=== PATIENT | male | born 1965 | race Caucasian/White ===

== ENCOUNTER 2016-07-16 09:12 | Emergency (ER) | payer MEDICARE, MEDICAID ==
[2016-07-16 09:50] VITALS: BP 105/72
--- NOTE | 2016-07-16 10:55 | UC ---
Ear Complaint HPI - HPI Summary HPI Summary: pt is accompanied by male caregiver from detention. caregiver reports that pt began "pulling" at right ear X 1 day. Has history of OM - History of Current Complaint Chief Complaint: UCEar Stated Complaint: EAR PAIN Time Seen by Provider: 07/16/16 10:21 Hx Obtained From: Family/Molding Line Assistant Hx From Patient Unobtainable Due To: Other - cognitive ability Onset/Duration: Sudden Onset Severity Initially: Mild Severity Currently: Mild - Allergies/Home Medications Allergies/Adverse Reactions: Allergies Allergy/AdvReac Type Severity Reaction Status Date / Time No Known Allergies Allergy Verified 07/16/16 09:50 PMH/Surg Hx/FS Hx/Imm Hx Previously Healthy: Yes - Surgical History Surgical History: Yes Surgery Procedure, Year, and Place: eye surgery - Family History Known Family History: Positive: Other - pt unable to provide pas [facility] - Social History Lives: [place] Alcohol Use: None Substance Use Type: None Smoking Status (MU): Never Smoked Tobacco Review of Systems Constitutional: Negative Skin: Negative Eyes: Negative ENT: Other - pulling at right ear Respiratory: Negative Cardiovascular: Negative Gastrointestinal: Negative Genitourinary: Negative Motor: Negative Neurovascular: Negative Musculoskeletal: Negative Neurological: Negative Psychological: Negative All Other Systems Reviewed And Are Negative: Yes Physical Exam Triage Information Reviewed: Yes Appearance: Well-Appearing Vital Signs: Initial Vital Signs Temp 98.1 F 07/16/16 09:42 Pulse 65 07/16/16 09:42 Resp 12 07/16/16 09:42 BP 105/72 07/16/16 09:42 Vital Signs Reviewed: Yes Eye Exam: Other - wearing sunglasses ENT: Positive: TMs normal, Other: - cerumen bilateral ears. right ear large amount of dry cerumen. Neck exam: Normal Respiratory Exam: Normal Cardiovascular Exam: Normal Musculoskeletal Exam: Normal Neurological Exam: Normal Neurological: Positive: Other: - visually impaired Psychological Exam: Normal Skin Exam: Normal Ear Complaint Course/Dx - Course Course Of Treatment: pt is unable to tolerate removal of cerumen with currette. Pt caregiver requested referral to ENT, Dr. Modi. - Differential Dx/Diagnosis Differential Diagnosis/HQI/PQRI: Cerumen Impaction, Otitis Media Provider Diagnoses: cerumen impaction right ear Discharge - Discharge Plan Condition: Stable Disposition: HOME Patient Education Materials: Cerumen Impaction (ED) Referrals: Harshad Miranda MD [Primary Care Provider] - Mckinley Modi MD [Medical Doctor] - Additional Instructions: Pt is an established pt of Dr. Modi. Pt's caregiver has requested a referral to Dr. Modi for continuity of care.
== END 2016-07-16 10:56 | disposition home or self-care (01) ==
LOC: UCCORT 09:12
DX: H61.21 Impacted cerumen, right ear (principal)
CPT/HCPCS: 99212; G0463

== ENCOUNTER 2017-10-18 10:23 | Emergency (ER) | payer MEDICARE, MEDICAID ==
[2017-10-18 11:16] VITALS: BP 113/69
--- NOTE | 2017-10-18 11:56 | UC ---
UC General HPI - HPI Summary HPI Summary: Pt is accompanied by longterm caregiver. Caregiver reports that pt has been yelling out and c/o left upper arm pain. Caregiver also says pt has been sticking tongue out and is concerned that pt may have sore throat. - History of Current Complaint Chief Complaint: UCUpperExtremity Stated Complaint: YELLING & RUBBING ARM Time Seen by Provider: 10/18/17 11:33 Hx Obtained From: Family/Diabetes Physician Hx From Patient Unobtainable Due To: Other Onset/Duration: Sudden Onset, Lasting Hours Onset Severity: Mild Current Severity: None - unable to have reliable assessment. Pain Intensity: 4 Associated Signs & Symptoms: Positive: Agitation - Allergy/Home Medications Allergies/Adverse Reactions: Allergies Allergy/AdvReac Type Severity Reaction Status Date / Time No Known Allergies Allergy Verified 10/18/17 11:05 PMH/Surg Hx/FS Hx/Imm Hx Previously Healthy: Yes - see pmh Psychological History: Other - diminished ability to communicate Other Psychological History: cognitive impairment, - Surgical History Surgical History: Yes Surgery Procedure, Year, and Place: eye surgery - Family History Known Family History: Positive: Other - pt unable to provide pas H - Social History Occupation: Disabled Lives: [facility]iary Alcohol Use: None Substance Use Type: None Smoking Status (MU): Never Smoked Tobacco Have You Smoked in the Last Year: No Review of Systems Constitutional: Negative Skin: Negative Eyes: Negative ENT: Negative Respiratory: Negative Cardiovascular: Negative Gastrointestinal: Negative Genitourinary: Negative Motor: Negative Neurovascular: Negative Musculoskeletal: Negative Neurological: Negative Psychological: Negative Is Patient Immunocompromised?: No All Other Systems Reviewed And Are Negative: Yes Physical Exam Triage Information Reviewed: Yes Appearance: Well-Appearing Vital Signs: Initial Vital Signs Temp 99 F 10/18/17 11:06 Pulse 66 10/18/17 11:06 Resp 18 10/18/17 11:06 BP 113/69 10/18/17 11:06 Pulse Ox 98 10/18/17 11:06 Vital Signs Reviewed: Yes ENT: Positive: Normal ENT inspection, Other - cerumen impaction left ear canal Dental: Positive: Gross Decay/Caries @ Neck exam: Normal Respiratory Exam: Normal Cardiovascular Exam: Normal Musculoskeletal Exam: Normal Neurological Exam: Normal Psychological Exam: Normal Skin Exam: Normal Course/Dx - Differential Dx - Multi-Symptom Differential Diagnoses: Other - left ear cerumen impaction Provider Diagnoses: left ear cerumen impaction Discharge - Sign-Out/Discharge Documenting (check all that apply): Discharge - Discharge Plan Condition: Stable Disposition: HOME Patient Education Materials: Cerumen Impaction (ED) Referrals: Harshad Miranda MD [Primary Care Provider] - If Needed - Billing Disposition and Condition Condition: STABLE Disposition: HOME
== END 2017-10-18 12:20 | disposition home or self-care (01) ==
LOC: UCCORT 10:24
DX: H61.22 Impacted cerumen, left ear (principal); M79.622 Pain in left upper arm
CPT/HCPCS: 99212; G0463

== ENCOUNTER 2017-12-09 13:44 | Emergency (ER) | payer MEDICARE, MEDICAID ==
--- OUTSIDE RECORDS SUMMARY | 2017-12-09 13:55 | XMS REPORT ---
:1965 External Reference #:[id number] Author Organization [facility] Address [address], [address] [place] [address] Phone [phone] Care Team Providers Name Role Phone Harshad Miranda MD Care Team Information Missile Inspector Preflight Unavailable Harshad Miranda MD Primary Care Physician Unavailable Payers Type Date Identification Numbers Payment Provider Subscriber Medicare Primary Policy Number: [id number] Medicare Anurag Varghese PayID: [id number] [address] [place] [address] Medicaid Policy Number: [id number] Medicaid Anurag Varghese Group Name: 1 2 [address] PayID: [id number] [place] [address] Problems Description No Information Social History Type Date Description Comments Lives With Halfway Occupation none Work Status Disabled Hand Dominance unable to determine Cigarette Use Never Smoked Cigarettes ETOH Use Never used alcohol Recreational Drug Use Denies Drug Use Allergies, Adverse Reactions, Alerts Date Description Reaction Status Severity Comments 10/21/2017 NKDA active Medications Medication Date Status Form Strength Qnty SIG Indications Ordering Provider Calcium 600+D / Active Tablets 600-400mg 90tab 1 by mouth Unknown High Potency 0000 -Unit s three times a day Levetiracetam / Active Tablets 500mg 1 tab by Unknown 0000 mouth every morning and every evening Polyethylene 00// Active Powder 527 every day Unknown Glycol 0000 Primidone / Active Tablets 50mg take one Unknown 0000 tablet by mouth at bedtime Propranolol HCL / Active Tablets 20mg take one Unknown 0000 tablet by mouth twice a day Senna Plus / Active Tablets 8.6-50mg 1 by mouth Unknown 0000 twice a day Ibuprofen 200 00/00/ Active Tablets 200mg 90tab 1 tab by Unknown 0000 s mouth as needed Bengay Ultra / Active Patches 5% Rub on Lt Unknown Strength 0000 Arm/Elbow as needed Acetaminophen / Active Tablets 325mg 2 by mouth Unknown 0000 every 4 hours as needed for pain Mylanta / Active Suspension 200-200-2 355ml 1 dose by Unknown 0000 0mg/5ML mouth every 4 hours as needed Bismuth Citrate / Active Powder 2 tbsp by Unknown 0000 mouth as needed Guaifenesin / Active Liquid 100mg/5ML 473ml 2 Teaspoon Unknown 0000 by mouth every 4 hours as needed Loratadine / Active Capsules 10mg 1 by mouth Unknown 0000 every day Bacitracin / Active Ointment 500Unit/G apply Unknown (External) 0000 M topically to minor cuts, wounds 2 times a day as needed Hydrocortisone / Active Cream 1% apply as Unknown 0000 needed for itching Vitamin D3 / Active Capsules 1000Unit 1 by mouth Unknown 0000 every day Medications Administered in Office Medication Date Status Form Strength Qnty SIG Indications Ordering Provider Injection Administered Injection Dayanara Anderson Betamethsara 2017 Anshul Rosado [facility] Sodium Phosphate 3 MG Of Each Vital Signs Date Vital Result Comment 11/16/2017 BP Systolic 103 mmHg BP Diastolic 70 mmHg Body Temperature 98.2 F Heart Rate 67 /min Respiratory Rate 15 /min Height 66 inches 5'6" Weight 135.00 lb BMI (Body Mass Index) 21.8 kg/m2 BSA (Body Surface Area) 1.69 m2 [place] body weight in kilograms 64 Pain Level 0 10/21/2017 BP Systolic Sitting Left Arm 106 mmHg BP Diastolic Sitting Left Arm 75 mmHg Body Temperature 98.2 F Heart Rate 65 /min Respiratory Rate 12 /min Weight 134.31 lb Pain Level 0 Results Description No Information Procedures Date CPT Code Description Status 10/21/2017 49654 Aspiration/Injection joint Completed intermediate(wrist/ankle/elbow/olbursa 11/23/2006 96501 Remove Impacted Cerumen Completed Encounters Type Date Location Provider CPT E/M Dx Office Visit 11/16/2017 10:45a Orthopaedic Office Dayanara Rosado, [address]1015 M77.12 [facility] Office Visit 10/21/2017 10:00a Orthopaedic Office Dayanara Rosado, 88263 M77.12 [facility] M25.522 Plan of Care 11/16/2017 - Dayanara Rosado [facility]77.12 Lateral epicondylitis, left elbowAllComments:He is doing well and will follow-up as needed with any problems or concerns.
--- OUTSIDE RECORDS SUMMARY | 2017-12-09 13:55 | XMS REPORT ---
:1965 External Reference #:[id number] Author Organization [facility] Address [address] [place] [address] Phone [phone] Care Team Providers Name Role Phone Harshad Miranda MD Care Team Information Photo Lab Manager Unavailable Harshad Miranda MD Primary Care Physician Unavailable Payers Type Date Identification Numbers Payment Provider Subscriber Medicare Primary Policy Number: [id number] Medicare Anurag Varghese PayID: [id number] [address] [place] [address] Medicaid Policy Number: [id number] Medicaid Anurag Varghese Group Name: 1 2 [address] PayID: [id number] [place] [address] Problems Description No Information Social History Type Date Description Comments Marital Status Single Marital Status Single Occupation Disabled Cigarette Use Never Smoked Cigarettes Cigarette Use Never Smoked Cigarettes ETOH Use Never used alcohol ETOH Use Never used alcohol Recreational Drug Use Never Used Drugs Allergies, Adverse Reactions, Alerts Date Description Reaction Status Severity Comments 09/03/2014 NKDA active 05/25/2007 NKDA inactive Medications Medication Date Status Form Strength Qnty SIG Indications Ordering Provider Apap 07/27 Active Tablets 325mg Every 4 Hours prn For temp/ discomfort Kaopectate 07/27 Active Suspension 262mg/15M Every 4 L Hours Hydrocortisone 07/27 Active Cream 1% Twice Daily prn For Itching Claritin 07/27 Active Tablets 10mg Every Day prn For allergy sx Polyethylene 07/27 Active Powder 3350-GRX Every Day Unknown Glycol 3350-GRX /2014 Keppra Active Tablets 500mg 2 po in am Unknown /0000 and 3 po in pm Polyethylene Active Unknown Glycol 3350-17GM /0000 Calcium 600 + D Active Tablets 600-200mg tid -Unit Propranolol Active Tablets 20mg bid Unknown Senna-Docusate Active Tablets 8.6-50mg bid Unknown Primidone Active Tablets 50mg 1 po qhs Unknown Ciprodex 10/05 Hx Suspension 0.3-0.1% 1bott 5 drops le twice a day Mckinley, - x 1 week M.D. 05/13 both ear /2014 Inderal 07/27 Hx Tablets 20mg Twice Daily - 08/18 Senna S 07/27 Hx Tablets 8.6-50mg Twice Daily - 08/18 Astepro 01/09 Hx Solution 137mcg/Sp 1unit 1 sprays in ray s each Mckinley, - nostril M.D. 05/13 Debrox 06/14 Hx Solution 6.5% QS 4 gtts each ear x wk Mckinley, - prior to M.D. 06/14 ear cleaning. Debrox 06/14 Hx Solution 6.5% QS 4 gtts ear ear x 1 wk Mckinley, - prior to M.D. 05/13 ear cleaning Debrox 05/25 Hx Solution 6.5% 3 gtts tid Mckinley, - M.D. 06/[address] 500mg 1 PO Am And Unknown 2 PO hs - 05/13 Tegretol Hx Chewtabs 100mg 1 PO bid - 05/13 Tegretol Hx Tablets 200mg 1 qid - 05/13 Inderal Hx Tablets 10mg 1 tid - 05/13 Calcium/Vitamin Hx Tablets 600mg 1 tid Unknown D - 11/09 Fosamax Hx Tablets 70mg Once A Week - 05/[address] 500mg - 05/13 Vitamin D /00 Hx Tablets 1000Unit 1 by mouth Unknown / every day - 08/18 Baby Oil Hx Oil apply 2-3 Unknown / drops both - ears at 05/17 night. Vital Signs Date Vital Result Comment 11/22/2017 Weight 143.00 lb Height 64 inches 5'4" BMI (Body Mass Index) 24.5 kg/m2 BP Systolic 97 mmHg BP Diastolic 66 mmHg Heart Rate 87 /min O2 % BldC Oximetry 100 % Body Temperature 97.3 F Pain Level 0 05/25/2017 Weight 143.00 lb Height 64 inches 5'4" BMI (Body Mass Index) 24.5 kg/m2 BP Systolic 107 mmHg BP Diastolic 72 mmHg Heart Rate 72 /min O2 % BldC Oximetry 95 % Body Temperature 97.9 F Pain Level 0 11/16/2016 Weight 149.00 lb Height 64 inches 5'4" BMI (Body Mass Index) 25.6 kg/m2 BP Systolic 116 mmHg BP Diastolic 78 mmHg Heart Rate 72 /min O2 % BldC Oximetry 96 % Body Temperature 97.7 F 08/19/2016 Weight 148.38 lb Height 64 inches 5'4" BMI (Body Mass Index) 25.5 kg/m2 BP Systolic 122 mmHg BP Diastolic 76 mmHg Heart Rate 84 /min O2 % BldC Oximetry 99 % Body Temperature 98.6 F 05/18/2016 Weight 148.00 lb Height 64 inches 5'4" BMI (Body Mass Index) 25.4 kg/m2 BP Systolic 112 mmHg BP Diastolic 74 mmHg Heart Rate 63 /min O2 % BldC Oximetry 97 % Body Temperature 97.5 F 11/11/2015 Weight 150.00 lb Height 64 inches 5'4" BMI (Body Mass Index) 25.7 kg/m2 BP Systolic 116 mmHg BP Diastolic 68 mmHg Heart Rate 103 /min O2 % BldC Oximetry 98 % Body Temperature 97.9 F 05/14/2015 Weight 146.00 lb Height 64 inches 5'4" BMI (Body Mass Index) 25.1 kg/m2 BP Systolic 118 mmHg BP Diastolic 76 mmHg Heart Rate 82 /min O2 % BldC Oximetry 97 % Body Temperature 97.8 F 11/12/2014 Weight 147.00 lb with sneakers Height 64 inches 5'4" BMI (Body Mass Index) 25.2 kg/m2 BP Systolic 104 mmHg BP Diastolic 68 mmHg Heart Rate 85 /min O2 % BldC Oximetry 97 % Body Temperature 98.3 F 10/17/2014 Body Temperature 97.9 F 10/05/2014 Weight 144.00 lb Height 64 inches 5'4" BMI (Body Mass Index) 24.7 kg/m2 BP Systolic 104 mmHg BP Diastolic 66 mmHg Heart Rate 81 /min O2 % BldC Oximetry 96 % Body Temperature 98.1 F 09/03/2014 Weight 146.00 lb Height 64 inches 5'4" BMI (Body Mass Index) 25.1 kg/m2 BP Systolic 100 mmHg BP Diastolic 58 mmHg Heart Rate 65 /min O2 % BldC Oximetry 98 % Body Temperature 97.2 F 01/09/2009 Body Temperature 97.6 F 08/20/2008 Weight 145.00 lb WT Per Fructose Loader BP Systolic 118 mmHg BP Diastolic 80 mmHg 11/23/2007 Weight 148.50 lb Body Temperature 96.1 F Results Description No Information Procedures Date CPT Code Description Status 05/25/2017 21644 Remove Impacted Cerumen Completed 11/16/2016 51736 Remove Impacted Cerumen Completed 08/19/2016 33572 Remove Impacted Cerumen Completed 05/18/2016 06864 Remove Impacted Cerumen Completed 11/11/2015 37056 Remove Impacted Cerumen Completed 05/14/2015 85812 Remove Impacted Cerumen Completed 11/12/2014 32087 Remove Impacted Cerumen Completed 10/17/2014 67005 Remove Impacted Cerumen Completed 09/03/2014 34562 Remove Impacted Cerumen Completed 11/23/2006 44983 Remove Impacted Cerumen Completed Encounters Type Date Location Provider CPT E/M Dx Office Visit 10/05/2014 8:30a Main Office Mckinley Modi M.D. 20290 380.4 380.23 Office Visit 01/09/2009 9:00a Main Office Teresa Stokes 10926 470 472.0 478.0 Office Visit 08/20/2008 8:00a [place] [address] 380.4 Office Visit 11/23/2007 9:00a Main Office Mckinley Modi M.D. 04361 380.4 Office Visit 05/25/2007 9:15a Main Office Mckinley Modi M.D. 35961 380.4 Plan of Care No Information Available
[2017-12-09 14:45] VITALS: BP 100/59
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
== END 2017-12-09 15:04 | disposition home or self-care (01) ==
LOC: UCCORT 13:44
DX: Z04.8 Encounter for examination and observation for other specified reasons (principal)
CPT/HCPCS: 99212; G0463

== ENCOUNTER 2018-08-29 20:34 | Emergency (ER) | payer MEDICARE, MEDICAID ==
[2018-08-29 21:00] VITALS: BP 106/65
--- NOTE | 2018-08-29 21:06 | UC ---
Elbow Pain - HPI Summary HPI Summary: Patient presents to urgent care with a caregiver [facility] [place] [facility]. 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 Patient with a history of recurrent left elbow tendinitis. Patient has been seen by orthopedic in the past and received 2 steroid injections per caregiver. Last estimated time of injection was approximately 9 months ago with a repeat provider is. Patient comes in today with 12 hours of progressive left arm discomfort. Patient noted to be touching his left straightening bending and shaking his hand. Patient without any known trauma. No erythema. No fevers or chills. No red streaking. Patient has a standing order for ibuprofen 200 mg twice a day which she is taking with little improvement. Patient also with stating or for Tylenol for which 1 dose has been given preventing her. Patient did not sleep last related to the pain. Patient is not otherwise immunocompromised. Patient MAR medication lists reviewed this visit - History of Current Complaint Chief Complaint: UCUpperExtremity Stated Complaint: LEFT ELBOW/ARM PAIN Time Seen by Provider: 08/29/18 20:54 Hx Obtained From: Patient, Family/Technical Asst, Medical Records Hx From Patient Unobtainable Due To: Other - MR Severity Currently: Moderate Location Of Pain: Is Discrete @ - pt touching left left - Allergies/Home Medications Allergies/Adverse Reactions: Allergies Allergy/AdvReac Type Severity Reaction Status Date / Time No Known Allergies Allergy Verified 08/29/18 20:48 PMH/Surg Hx/FS Hx/Imm Hx Previously Healthy: Yes GI/ History: Other - constipation Psychological History: Anxiety, Other - Surgical History Surgical History: Yes Surgery Procedure, Year, and Place: eye surgery - Family History Known Family History: Positive: Other - Pt unable to provide - MR, Non- Contributory - Social History Occupation: Disabled Lives: Detention Alcohol Use: None Substance Use Type: None Smoking Status (MU): Never Smoked Tobacco Have You Smoked in the Last Year: No Review of Systems All Other Systems Reviewed And Are Negative: No Constitutional: Positive: Negative Skin: Positive: Negative Respiratory: Negative: Cough Gastrointestinal: Negative: Vomiting, Diarrhea Motor: Positive: Other - Left elbow pain - Comments Additional Review of Systems Comments: Pt with MR - not able to articulate well Physical Exam - Summary Physical Exam Summary: Vital Signs Reviewed: Yes A+Ox3, no distress Eyes: Conjunctiva Clear ENT: Hearing grossly normal neck: supple Respiratory: Positive: No respiratory distress, No accessory muscle use Cardiovascular: skin color reflect adequate perfusion 2+ radial, 2+ ulna CBT < 2 sec Musculoskeletal Exam: + abduct shoulder + flex/ext elbow + pronate/supinate + flex/ext wrist no tenderness along humerus + TTP with focal palpation lateral epicondyl. no pain olecrenon, forearm Neurological: Positive: Alert, ambulatory without difficulty + thumb up, + 5/ 5 grasp. Pt unable to follow commands for focal sensory test Psychological: Positive: Normal Response To Family Skin: Positive: no rash, no ecchymosis no erythema, no edema no open wounds,no warmth Triage Information Reviewed: Yes Vital Signs: Initial Vital Signs Temp 99 F 08/29/18 20:53 Pulse 68 08/29/18 20:53 Resp 14 08/29/18 20:53 BP 106/65 08/29/18 20:53 Pulse Ox 97 08/29/18 20:53 Elbow Pain Course/Dx - Course Course Of Treatment: Pt presents to with caregive from [place]. Pt with 12 hours of discomfort left elbow. Pt noted to bend/straighten and shake hand. Pt with h/o tendonitis in left elbow - has had steroid injectsions previously. Patient with minimal verbal communication skills. Patient able to cooperate with some components of exam. There is no erythema or edema. 8. Patient does have full active range of motion of the joint. Distal circulation and movement are intact. 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 Patient with point tenderness the lateral epicondyle left elbow. Suspect this is recurrence of his tendinitis. Patient given heat pack and a spacer support. Increased Motrin dosing to 600 mg every 6 with food as needed as well as increasing Tylenol. Patient given contact information for sports medicine as well as orthopedic. Encouraged to call for follow-up. Staff encouraged to monitor wound for any concerns signs and symptoms of infection. States comfort agreement and understanding of plan. - Differential Dx/Diagnosis Provider Diagnosis: Elbow pain, left Discharge - Sign-Out/Discharge Documenting (check all that apply): Patient Departure All imaging exams completed and their final reports reviewed: No Studies - Discharge Plan Condition: Stable Disposition: HOME Patient Education Materials: Tendinitis (ED) Referrals: [facility] [Provider Group] (Okay to request the [place] office ) Tarun Gayle MD [Medical Doctor] - Harshad Miranda MD [Primary Care Provider] - Additional Instructions: - Okay to take Tylenol every 4 hours as previously prescribed for pain - Okay to take Ibuprofen (600mg) every 8 hours for pain for a period of 5 days. Order expires 09/05/18 -apply heat OR ice for comfort - do not put ice directly on skin - causes alexis bite - Contact the Sport's medicine office or the orthopedic provider (Dr. Gayle) tomorrow to schedule a follow-up appointment this week. Okay to request the [facility] for Sport's medicine - If Mr. Abimael frankops reddness, swelling, fever, uncontrolled pain or other concerns it is recommended you seek medical care in the emergency department - Billing Disposition and Condition Condition: STABLE Disposition: Home
[2018-08-29] MEDS ORDERED: Ibuprofen TAB* 600 MG PO ONE (21:17)
== END 2018-08-29 21:37 | disposition home or self-care (01) ==
LOC: UCCORT 20:34
DX: M25.522 Pain in left elbow (principal)
CPT/HCPCS: 99212; A9270-GY; G0463

== ENCOUNTER 2018-10-04 15:08 | Emergency (ER) | payer MEDICARE, MEDICAID ==
[2018-10-04 16:22] VITALS: BP 121/85
--- NOTE | 2018-10-04 17:04 | UC ---
Complaint Male HPI - HPI Summary HPI Summary: 52-year-old male comes with a chief complaint of urinary incontinence the last couple of days. Patient is able to hear. He does not speak any cannot see. He lives in a senior care. No reported fevers otherwise has been normal as far as the history provided today. Patient's mother is here with him. She did say he had a rash on the left side of his face when she first saw him couple of hours ago. The rash is gone now. The patient does not appear to be in any distress and he gives no history. - History of Current Complaint Chief Complaint: UCGU Stated Complaint: URINARY Time Seen by Provider: 10/04/18 15:58 Pain Intensity: 0 - Allergies/Home Medications Allergies/Adverse Reactions: Allergies Allergy/AdvReac Type Severity Reaction Status Date / Time No Known Allergies Allergy Verified 08/29/18 20:48 Home Medications: Home Medications Ibuprofen TAB* [Advil TAB*] 200 mg PO BID PRN 10/04/18 [History Confirmed ] PMH/Surg Hx/FS Hx/Imm Hx Previously Healthy: Yes Cardiovascular History: Hypertension Neurological History: Seizures - Surgical History Surgical History: Yes Surgery Procedure, Year, and Place: eye surgery - Family History Known Family History: Positive: Other - Pt unable to provide - MR, Non- Contributory - Social History Alcohol Use: None Substance Use Type: None Smoking Status (MU): Never Smoked Tobacco Have You Smoked in the Last Year: No Review of Systems All Other Systems Reviewed And Are Negative: Yes Constitutional: Positive: Other - SEE HPI Skin: Positive: Other - SEE HPI Eyes: Positive: Other - SEE HPI ENT: Positive: Negative Respiratory: Positive: Negative Cardiovascular: Positive: Negative Gastrointestinal: Positive: Negative Genitourinary: Positive: Other - SEE HPI Motor: Positive: Negative Neurovascular: Positive: Negative Musculoskeletal: Positive: Other: - SEE HPI Neurological: Positive: Other - SEE HPI Psychological: Positive: Other - SEE HPI Is Patient Immunocompromised?: No Physical Exam Triage Information Reviewed: Yes Completion Of Physical Exam Limited Due To: Other - PATIENT IS BLIND AND MUTE Appearance: Well-Appearing, No Pain Distress, Well-Nourished Vital Signs: Initial Vital Signs Temp 98.2 F 10/04/18 16:13 Pulse 64 10/04/18 16:13 Resp 14 10/04/18 16:13 BP 121/85 10/04/18 16:13 Pulse Ox 100 10/04/18 16:13 Vital Signs Reviewed: Yes Eyes: Positive: Other: - BLIND ENT: Positive: Pharynx normal, TMs normal Neck exam: Normal Neck: Positive: Supple Respiratory: Positive: Lungs clear, Normal breath sounds, No respiratory distress Cardiovascular: Positive: RRR Abdomen Description: Positive: Nontender, Soft Bowel Sounds: Positive: Present Musculoskeletal: Positive: Strength Intact, ROM Intact Neurological: Positive: Muscle Tone Normal Psychological: Positive: Normal Response To Family Skin Exam: Normal Complaint Male Course/Dx - Course Course Of Treatment: 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 He appears normal to his mom was in the room. He is difficult to evaluate his symptoms. Plan right now is to treat most likely cause for urinary incontinence in a male his age prostatitis. We' ll treat with Bactrim. I let the mom know that if anything changes he needs to get reevaluated preferably in the emergency department. - Differential Dx/Diagnosis Provider Diagnosis: Urinary incontinence Discharge - Sign-Out/Discharge Documenting (check all that apply): Patient Departure All imaging exams completed and their final reports reviewed: No Studies - Discharge Plan Condition: Stable Disposition: HOME Prescriptions: Sulfamethox/Trimethoprim DS* [Bactrim DS 800/160 TAB*] 1 tab PO BID #20 tab Patient Education Materials: Urinary Incontinence (ED) Referrals: Harshad Miranda MD [Primary Care Provider] - Additional Instructions: FOLLOW UP WITH YOUR DOCTOR. GO TO THE EMERGENCY DEPARTMENT FOR ANY WORSENING OF VAIBHAV'S CONDITION; FEVER, PAIN, HE IS NOT WELL OR ANY QUESTIONS OR CONCERNS. - Billing Disposition and Condition Condition: STABLE Disposition: Home
== END 2018-10-04 17:10 | disposition home or self-care (01) ==
LOC: UCCORT 15:08
DX: R32 Unspecified urinary incontinence (principal); I10 Essential (primary) hypertension
CPT/HCPCS: 81003; 99212; G0463

== ENCOUNTER 2019-01-26 09:01 | Emergency (ER) | payer MEDICARE, MEDICAID ==
[2019-01-26 09:28] VITALS: BP 116/58
--- NOTE | 2019-01-26 10:12 | UC ---
HPI Febrile Illness - HPI Summary HPI Summary: 53 year old male with complaint of fever. pts respiratory care practitioner states he started yesterday running temps of 100-101, has some swelling on the L side of his neck , slight decrease in appetite. Denies any N/V/D, urinating and having BM's per his usual. Pt is non-verbal and unable to verbalize how he feels. Given tylenol last night and it helped. No ear pain. Having some chills. No seizures. No recent sick contacts. Acting normal otherwise. Eating and drinking similar. 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 Pain Intensity: 0 Aggravating Factors: Nothing Associated Signs and Symptoms: Negative - Allergy/Home Medications Allergies/Adverse Reactions: Allergies Allergy/AdvReac Type Severity Reaction Status Date / Time No Known Allergies Allergy Verified 08/29/18 20:48 PMH/Surg Hx/FS Hx/Imm Hx Previously Healthy: Yes Neurological History: Seizures - Surgical History Surgical History: Yes Surgery Procedure, Year, and Place: eye surgery - Family History Known Family History: Positive: Other - Pt unable to provide - MR, Non- Contributory - Social History Alcohol Use: None Substance Use Type: None Smoking Status (MU): Never Smoked Tobacco Have You Smoked in the Last Year: No Review of Systems All Other Systems Reviewed And Are Negative: Yes Constitutional: Positive: Fever, Chills, Fatigue Is Patient Immunocompromised?: Yes Physical Exam Triage Information Reviewed: Yes Appearance: Well-Appearing, No Pain Distress, Well-Nourished Vital Signs: Initial Vital Signs Temp 101.5 F 01/26/19 09:21 Pulse 81 01/26/19 09:21 Resp 18 01/26/19 09:21 BP 116/58 01/26/19 09:21 Pulse Ox 100 01/26/19 09:21 Vital Signs Reviewed: Yes Eye Exam: Normal ENT Exam: Normal ENT: Negative: TM bulging, TM dull, TM red Dental Exam: Normal Neck exam: Normal Neck: Positive: Supple, Enlarged Nodes @ - right anterior cervical mild swelling Respiratory Exam: Normal Cardiovascular Exam: Normal Abdominal Exam: Normal Musculoskeletal Exam: Normal Neurological Exam: Normal Neurological: Positive: Alert Psychological Exam: Normal Skin Exam: Normal Course/Dx - Course Course Of Treatment: 1 day of fever. Discussed strep testing and care take declined. Discussed motrin and declined as well stating just want to use APAP. If Sx worsen or persist then RTo for further evaluation. - Febrile Illness Differential Diagnoses: Fever of Unknown Origin, Viremia, Other: - URI, viral illness - Diagnoses Provider Diagnosis: Viral illness Discharge - Sign-Out/Discharge Documenting (check all that apply): Patient Departure All imaging exams completed and their final reports reviewed: No Studies - Discharge Plan Condition: Good Disposition: HOME Patient Education Materials: Viral Syndrome (ED) Referrals: Harshad Miranda MD [Primary Care Provider] - 1 Day Additional Instructions: Your symptoms appear to be viral in nature at this time with the one day of fever and source for bacterial infection. Please continue with the tylenol every 6 hours. - Billing Disposition and Condition Condition: GOOD Disposition: Home
[2019-01-26] MEDS ORDERED: Acetaminophen TAB* 325 MG PO ONE (10:14)
== END 2019-01-26 10:26 | disposition home or self-care (01) ==
LOC: UCCORT 09:01
DX: B34.9 Viral infection, unspecified (principal); G40.909 Epilepsy, unspecified, not intractable, without status epilepticus
CPT/HCPCS: 99212; A9270-GY; G0463

== ENCOUNTER 2019-09-03 09:06 | Emergency (ER) | payer MEDICARE, MEDICAID ==
[2019-09-03 09:44] VITALS: BP 97/65
[2019-09-03 10:04] LABS: Influenza A Molecular Negative (Negative); Influenza B Molecular Negative (Negative)
--- NOTE | 2019-09-03 10:10 | UC ---
FLU HPI - HPI Summary HPI Summary: Pt is accompanied by [facility] computer support analyst. staff antisubmarine officer that pt has not "been himself", pt has been sleeping more frequently and longer amounts of time than usual. Pt has decreased appetite and has mild URI like symptoms X 2 days. - History of Current Complaint Chief Complaint: UCRespiratory Stated Complaint: FEVER, CONGESTION Time Seen by Provider: 09/03/19 09:39 Hx Obtained From: Patient Onset/Duration: Sudden Onset, Lasting Days, Still Present Severity Currently: Mild Severity Initially: Mild Pain Intensity: 0 Associated Signs & Symptoms: Positive: Nasal Congestion Related Hx: Possible Flu/Infectious Exposure - Risk Factors Influenza Risk Factors: Negative - Allergy/Home Medications Allergies/Adverse Reactions: Allergies Allergy/AdvReac Type Severity Reaction Status Date / Time No Known Allergies Allergy Verified 09/03/19 09:42 Home Medications: Home Medications Cholecalciferol (Vitamin D3) [Vitamin D3] 1,000 unit PO QAM 07/27/14 [History Confirmed 09/03/19] LoraTADine TAB(NF) [Claritin 10 MG TAB(NF)] 10 mg PO DAILY PRN 07/27/14 [ History Confirmed 09/03/19] Propranolol 20 mg TAB [Inderal 20 mg TAB] 20 mg PO BID 07/27/14 [History Confirmed 09/03/19] levETIRAcetam TAB* [Keppra TAB*] 1,500 mg PO BID 07/27/14 [History Confirmed 07/24] Ibuprofen TAB* [Advil TAB*] 200 mg PO BID PRN 10/04/18 [History Confirmed ] Acetaminophen TAB* [Tylenol TAB*] 650 mg PO Q4H PRN 09/03/19 [History Confirmed 09/03/19] Al Hydrox/Mg Hydrox/Álvrao BULK* [Mylanta - BULK BOT*] 15 ml PO Q4H PRN 09/03/19 [ History Confirmed 09/03/19] Bacitracin OINTMENT MARTINA* 1 applic TOPICAL BID PRN 09/03/19 [History Confirmed ] Bismuth Subsalicylate* [Peptic Relief*] 30 ml PO SEE INSTRUCTIONS PRN MDD 180mL 09/03/19 [History Confirmed 09/03/19] Calcium Carbonate/Vitamin D3 [Calcium 600+D High Potenc] 1 tab PO TID 09/03/19 [ History Confirmed 09/03/19] Guaifenesin/DM (SUGAR FREE)* [Diabetic Tussin DM*] 10 ml PO Q4H PRN 09/03/19 [ History Confirmed 09/03/19] Hydrocortisone 1% CREAM* [Hytone (Topical) 1%*] 1 applic TOPICAL BID PRN [History Confirmed 09/03/19] Mineral Oil Sterile, TOPICAL* 1 drop BOTH EARS WEEKLY 09/03/19 [History Confirmed 09/03/19] Polyethylene Glycol 3350 BTL* [Miralax (FULL BULK BOTTLE)] 17 gm PO DAILY [History Confirmed 09/03/19] Primidone 50 mg TAB (*) [Mysoline 250 mg TAB (*)] 50 mg PO BEDTIME 09/03/19 [ History Confirmed 09/03/19] Sennosides/Docusate Sodium [Senna Plus 8.6-50 mg Tablet] 1 each PO BID 09/03/19 [History Confirmed 09/03/19] PMH/Surg Hx/FS Hx/Imm Hx Previously Healthy: Yes - Surgical History Surgical History: Yes Surgery Procedure, Year, and Place: eye surgery - Family History Known Family History: Positive: Other - Pt unable to provide - MR, Non- Contributory - Social History Occupation: Disabled Lives: Prison Alcohol Use: None Substance Use Type: None Smoking Status (MU): Never Smoked Tobacco Have You Smoked in the Last Year: No - Immunization History Vaccination Up to Date: Yes Review of Systems All Other Systems Reviewed And Are Negative: Yes Constitutional: Positive: Fatigue Skin: Positive: Negative Eyes: Positive: Negative ENT: Positive: Sinus Congestion Respiratory: Positive: Negative Cardiovascular: Positive: Negative Gastrointestinal: Positive: Negative Genitourinary: Positive: Negative Motor: Positive: Negative Neurovascular: Positive: Negative Musculoskeletal: Positive: Negative Neurological/Mental Status: Positive: Negative Psychological: Positive: Negative Is Patient Immunocompromised?: No Physical Exam Triage Information Reviewed: Yes Completion Of Physical Exam Limited Due To: Other - pt is non verbal, pt has cognitive disabilities. Appearance: Well-Appearing Vital Signs: Initial Vital Signs Temp 99 F 09/03/19 09:38 Pulse 70 09/03/19 09:38 Resp 18 09/03/19 09:38 BP 97/65 09/03/19 09:38 Pulse Ox 100 09/03/19 09:38 Vital Signs Reviewed: Yes Eye Exam: Normal ENT Exam: Normal ENT: Positive: Normal ENT inspection Dental: Positive: Gross Decay/Caries @ Neck exam: Normal Respiratory Exam: Normal Cardiovascular Exam: Normal Musculoskeletal Exam: Normal Neurological Exam: Normal Psychological Exam: Normal Skin Exam: Normal Flu Course/Dx - Course Course Of Treatment: Pt was recommended to f/u with PCP as needed. - Differential Dx/Diagnosis Differential Diagnosis/HQI/PQRI: Influenza, Upper Respiratory Infection Provider Diagnosis: Fatigue, Viral syndrome Discharge ED - Sign-Out/Discharge Documenting (check all that apply): Patient Departure All imaging exams completed and their final reports reviewed: No Studies - Discharge Plan Condition: Stable Disposition: HOME Patient Education Materials: Viral Syndrome (ED) Referrals: Harshad Miranda MD [Primary Care Provider] - If Needed - Billing Disposition and Condition Condition: STABLE Disposition: Home
== END 2019-09-03 10:17 | disposition home or self-care (01) ==
LOC: UCCORT 09:06
DX: B34.9 Viral infection, unspecified (principal); R53.83 Other fatigue
CPT/HCPCS: 99212; G0463